=== PATIENT | female | born 1955 ===

== ENCOUNTER 2024-03-04 22:49 | Outpatient (REF) | payer OTHER, SELFPAY | END 2024-03-04 22:50 | disposition home or self-care (01) | LOC: HO.LAB 22:49 | PROVIDERS: PCP Nurse Practitioner; Visit Provider Nurse Practitioner | DX: N39.0 Urinary tract infection, site not specified (principal) | CPT/HCPCS: 81001; 87086; 87088; 87186 ==

== ENCOUNTER 2024-03-18 23:38 | Outpatient (REF) | payer OTHER, SELFPAY | END 2024-03-18 23:39 | disposition home or self-care (01) | LOC: HO.HVNA 23:38 | PROVIDERS: Visit Provider Nurse Practitioner | DX: Z13.89 Encounter for screening for other disorder (principal) | CPT/HCPCS: 81001; 87086 ==